=== PATIENT | female | born 1955 | race Caucasian/White ===

== ENCOUNTER 2020-06-05 20:28 | Observation (INO) ==
[2020-06-05 20:54] LABS: Basophils % 0.5 %; Eosinophils # 0.1 K/mcL (0.0-0.6); Eosinophils % 1.5 %; Hematocrit 45.1 % (35.3-44.9); Hemoglobin 16.6 g/dL (11.5-15.4); Immature Granulocytes % 0.5 % (0-4); Lymphocytes # 2.6 K/mcL (0.6-4.6); Lymphocytes % 31.9 %; Mean Corpuscular HGB Conc 36.8 g/dL (31.6-35.5); Mean Corpuscular Hemoglobin 34.4 pg (28.0-33.3); Mean Corpuscular Volume 93.6 fL (83.0-100.0); Monocytes # 0.8 K/mcL (0.0-1.3); Monocytes % 9.4 %; Neutrophils # 4.6 K/mcL (1.6-8.9); Platelet Count 133 K/mcL (140-400); Red Blood Count 4.82 M/mcL (3.82-4.97); Red Cell Distribution Width 12.7 % (11.5-14.5); Segmented Neutrophils % 56.2 %; White Blood Count 8.1 K/mcL (4.3-11.1)
[2020-06-05 21:03] LABS: Bilirubin,Urine Negative (Negative); Blood,Urine Negative (Negative); Clarity,Urine Clear (Clear); Color,Urine Yellow (Yellow); Glucose,Urine (UA) Normal (Normal); Ketones,Urine Negative (Negative); Leukocyte Esterase,Urine Trace (Negative); Nitrite,Urine Positive (Negative); PH,Urine 7.5 pH Units (5.0-8.0); Protein,Urine Negative (Neg-Trace); Urobilinogen,Urine Normal (Normal)
[2020-06-05 21:16] LABS: INR 1.2; Prothrombin Time 13.5 Seconds (9.4-12.1)
[2020-06-05 21:18] LABS: Platelet Estimate Decreased (Normal)
[2020-06-05 21:21] LABS: Alanine Aminotransferase 37 Units/L (7-52); Albumin 4.1 g/dL (3.5-5.7); Albumin/Globulin Ratio 1.3 (1.1-2.2); Alkaline Phosphatase 146 Units/L (34-104); Aspartate Amino Transferase 31 Units/L (13-39); BUN/Creatinine Ratio 16 (6-26); Bilirubin,Total 0.7 mg/dL (0.3-1.0); Blood Urea Nitrogen 16 mg/dL (8-23); Calcium 9.4 mg/dL (8.6-10.3); Carbon Dioxide 23 mEq/L (23-29); Chloride 103 mEq/L (98-107); Globulin 3.1 g/dL (2.4-3.5); Glucose 179 mg/dL (70-105); Magnesium 1.9 mg/dL (1.6-2.6); Osmolality,Calculated 294 (280-300); Potassium 3.8 mEq/L (3.5-5.1); Sodium 139 mEq/L (136-145); Total Protein 7.2 g/dL (6.4-8.9); eGFR For African Americans > 60 (> 60); eGFR For Non-African Americans 56 (> 60)
[2020-06-05 21:22] LABS: Troponin I < 0.03 ng/mL (< 0.04)
[2020-06-05 21:23] LABS: Bacteria,Urine Many per hpf (None-Few); Squamous Epithelial Cell,Urine Moderate per hpf (None-Few); WBC,Urine 0-3 per hpf (0-3)
[2020-06-05] MEDS ORDERED: Aspirin 81 MG TAB.CHEW PO ONE (22:08)
[2020-06-05] MEDS ORDERED: cefTRIAXone 1,000 MG in 0.9 % Sodium Chloride Mini Bag 100 ML IVPB ONE (22:08)
[2020-06-05] MEDS ORDERED: 0.9 % Sodium Chloride 1,000 ML IV ONE (22:08)
[2020-06-06] MEDS ORDERED: Acetaminophen 325 MG TABLET PO PRN ×2 (01:09→03:09)
[2020-06-06] MEDS ORDERED: *HR* LORazepam 1 MG TABLET PO ONE (01:25)
[2020-06-06] MEDS ORDERED: Insulin LISPRO 300 UNITS/3 ML VIAL SQ PRN (03:09)
[2020-06-06] MEDS ORDERED: Naloxone 0.4 MG/ML INJ IVP PRN (03:09)
[2020-06-06] MEDS ORDERED: 0.9 % Sodium Chloride 1,000 ML IVC SCH (03:09)
[2020-06-06] MEDS ORDERED: Spironolactone 25 MG TABLET PO SCH (09:00)
[2020-06-06] MEDS ORDERED: Lactulose Oral Soln 20 GM/30 ML UDC PO SCH (09:00)
[2020-06-06] MEDS ORDERED: Furosemide 20 MG TABLET PO SCH (09:00)
[2020-06-06] MEDS ORDERED: *HR* LORazepam 1 MG TABLET PO SCH (09:00)
[2020-06-06] MEDS ORDERED: BuPROPion SR (12 HR) 150 MG TABLET PO SCH (09:00)
[2020-06-06] MEDS ORDERED: Pregabalin 75 MG CAPSULE PO SCH (09:00)
[2020-06-06 10:49] VITALS: BP 128/84
[2020-06-06] MEDS ORDERED: rOPINIRole 0.25 MG TABLET PO SCH (21:00)
[2020-06-06] MEDS ORDERED: Insulin DETEMIR 100 UNIT/ML per UNIT SQ SCH (21:00)
[2020-06-06] MEDS ORDERED: cefTRIAXone 1,000 MG in 0.9 % Sodium Chloride Mini Bag 100 ML IVPB SCH (21:00)
[2020-06-08] MEDS ORDERED: (Dulaglutide [Trulicity] 1.5 MG) SQ SCH (09:00)
== END 2020-06-06 12:54 | disposition home or self-care (01) ==
LOC: INPPIK 20:28 → EMEROOPIK 20:28 → INPPIK 23:15
PROVIDERS: ADMIT Family Medicine; ATTEND Family Medicine